=== PATIENT | female | born 1960 | race Caucasian/White ===

== ENCOUNTER 2017-05-11 18:51 | Emergency (ER) | payer OTHER ==
[2017-05-11 18:56] VITALS: BP 150/106
[2017-05-11] MEDS ORDERED: Acetaminophen 500 MG Tab PO ONE (19:03)
--- NOTE | 2017-05-11 19:25 | EDM.PDOC ---
ED HPI GENERAL MEDICAL PROBLEM - General Chief Complaint: Genitourinary Problem Stated Complaint: thinks she has a UTI Time Seen by Provider: 05/11/17 19:00 Source of Information: Reports: Patient History Limitations: Reports: No Limitations - History of Present Illness INITIAL COMMENTS - FREE TEXT/NARRATIVE: Patient indicated last evening 101 lowgrade fever and chills, no other S/S with exception of cough. She states she went to bed and got up this am and fever was 99 range. She states this am she noted urgency with urination and cloudy urine. She states cough persists. She is in for further treatment. 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 Pelvic Pain Score (Numeric/FACES): 4 - Related Data Allergies Allergy/AdvReac Type Severity Reaction Status Date / Time No Known Allergies Allergy Verified 06/01/15 11:05 Home Meds: Home Meds Ibuprofen 200 mg PO Q6H PRN 06/01/15 [History] Lisinopril 20 mg PO DAILY 06/01/15 [History] Omeprazole [Prilosec] 20 mg PO DAILY 06/01/15 [History] Simvastatin [Zocor] 40 mg PO DAILY 06/01/15 [History] Acetaminophen/HYDROcodone [[place] 325-5 MG] 1 tab PO Q6H #30 tablet 06/07/15 [Rx] glipiZIDE [Glucotrol] 10 mg PO DAILY 05/11/17 [History] Past Medical History Cardiovascular History: Reports: High Cholesterol, Hypertension Genitourinary History: Reports: UTI, Recurrent 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 () Endocrine/Metabolic History: Reports: Diabetes, Type II - Past Surgical History Other HEENT Surgeries/Procedures: wears glasses GI Surgical History: Reports: Cholecystectomy Female Surgical History: Reports: Section Social & Family History - Family History Family Medical History: Noncontributory - Tobacco Use Smoking Status *Q: Never Smoker - Caffeine Use Caffeine Use: Reports: Coffee - Recreational Drug Use Recreational Drug Use: No ED ROS GENERAL - Review of Systems Review Of Systems: See Below Constitutional: Reports: Fever, Chills, Malaise HEENT: Reports: No Symptoms Respiratory: Reports: Cough Cardiovascular: Reports: No Symptoms Endocrine: Reports: No Symptoms GI/Abdominal: Reports: No Symptoms : Reports: Dysuria, Frequency, Urgency. Denies: Flank Pain Musculoskeletal: Reports: No Symptoms Skin: Reports: No Symptoms Neurological: Reports: No Symptoms Psychiatric: Reports: No Symptoms Hematologic/Lymphatic: Reports: No Symptoms Immunologic: Reports: No Symptoms ED EXAM, RENAL/ - Physical Exam Exam: See Below Exam Limited By: No Limitations General Appearance: Alert, WD/WN, No Apparent Distress, Other (Appears well. ) Eye Exam: Bilateral Eye: Normal Fundi, Normal Inspection Ears: Normal External Exam, Normal Canal, Hearing Grossly Normal, Normal TMs Nose: Normal Inspection, Normal Mucosa, No Blood Throat/Mouth: Normal Inspection, Normal Lips, Normal Teeth, Normal Gums, Normal Oropharynx, Normal Voice, No Airway Compromise Head: Atraumatic, Normocephalic Neck: Normal Inspection, Supple, Non-Tender, Full Range of Motion Respiratory/Chest: No Respiratory Distress, Lungs Clear, Normal Breath Sounds, No Accessory Muscle Use, Chest Non-Tender. No: Crackles, Rales, Rhonchi, Wheezing Cardiovascular: Normal Peripheral Pulses, No Edema, No JVD, No Murmur, No Rub, Tachycardia GI/Abdominal: Normal Bowel Sounds, Soft, Non-Tender, No Organomegaly, No Distention. No: Rebound (Female) Exam: Deferred Rectal (Female) Exam: Deferred Back Exam: Normal Inspection, Full Range of Motion. No: CVA Tenderness (L), CVA Tenderness (R) Extremities: Normal Inspection, Normal Range of Motion, Non-Tender, No Pedal Edema, Normal Capillary Refill Neurological: Alert, Oriented, CN II-XII Intact, Normal Cognition, Normal Gait, Normal Reflexes, No Motor/Sensory Deficits Psychiatric: Normal Affect, Normal Mood Skin Exam: Warm, Dry, Intact, Normal Color, No Rash Lymphatic: No Adenopathy Course - Vital Signs Last Recorded V/S: Last Vital Signs Temp 39.3 C H 05/11/17 19:10 Pulse 155 H 05/11/17 18:52 Resp 20 05/11/17 18:52 BP 150/106 H 05/11/17 18:52 Pulse Ox 93 L 05/11/17 18:52 - Orders/Labs/Meds Orders: Active Orders 24 hr Category Date Time Status Chest 2V [CR] Stat Exams 05/11/17 19:15 Taken CULTURE BLOOD [BC] Stat Lab 05/11/17 19:15 Received CULTURE BLOOD [BC] Stat Lab 05/11/17 19:19 Received CULTURE URINE [RM] Stat Lab 05/11/17 19:10 Received Blood Culture x2 Reflex Set [OM.PC] Stat Oth 05/11/17 19:00 Ordered Labs: Laboratory Tests 05/11/17 05/11/17 05/11/17 Range/Units 19:10 19:15 19:15 WBC 5.3 (5.0-10.0) 10^3/uL RBC 4.16 (4.00-5.50) 10^6/uL Hgb 12.1 (12.0-16.0) g/dL Hct 36.1 L (37.0-47.0) % MCV 86.8 (82.0-94.0) fL MCH 29.1 (27.0-32.0) pg MCHC 33.5 (33.0-38.0) g/dL RDW Coeff of [place] 14.0 (11.0-15.0) % Plt Count 197 (150-400) 10^3/uL Neut % (Auto) 77.6 (35-85) % Lymph % (Auto) 12.9 (10-55) % [place] % (Auto) 8.3 (0-16) % Eos % (Auto) 0.8 (0-5) % Baso % (Auto) 0.4 (0-3) % Neut # (Auto) 4.10 (1.80-7.00) 10^3/uL Lymph # (Auto) 0.68 L (1.00-4.80) 10^3/uL [place] # (Auto) 0.44 (0.00-0.80) 10^3/uL Eos # (Auto) 0.04 (0.00-0.45) 10^3/uL Baso # (Auto) 0.02 10^3/uL Sodium 139 (136-145) mEq/L Potassium 5.2 H (3.5-5.0) mEq/L Chloride 101 (98-106) mEq/L Carbon Dioxide 24 (21-32) mmol/L BUN 23 H D (7-18) mg/dL Creatinine 1.5 H (0.6-1.0) mg/dL Est Cr Clr Drug Dosing 35.47 mL/min Estimated GFR (MDRD) 36 L (>=60) mL/min Glucose 119 H D (75-99) mg/dL Lactic Acid (0.4-2.0) mmol/L Calcium 10.0 (8.4-10.1) mg/dL Total Bilirubin 1.9 H (0.0-1.0) mg/dL AST 116 H (15-37) U/L ALT 128 H (12-78) U/L Alkaline Phosphatase 294 H (46-116) U/L C-Reactive Protein 20.6 H (0.2-0.8) mg/dL Total Protein 8.0 (6.4-8.2) g/dL Albumin 4.2 (3.4-5.0) g/dL Urine Color Yellow (YELLOW) Urine Appearance Cloudy (CLEAR) Urine pH 5.5 (4.5-8.0) Ur Specific [place] 1.020 (1.003-1.020) Urine Protein 100 H (NEGATIVE) mg/dL Urine Glucose (UA) Negative (NEGATIVE) mg/dL Urine Ketones 15 H (NEGATIVE) mg/dL Urine Occult Blood Moderate H (NEGATIVE) Urine Nitrite Negative (NEGATIVE) Urine Bilirubin Negative (NEGATIVE) Urine Urobilinogen 0.2 (0.2-1.0) EU/dL Ur Leukocyte Esterase Large H (NEGATIVE) Urine RBC 10-20 H (0-5) /HPF Urine WBC >100 H (0-5) /HPF Urine WBC Clumps Few H (NOT SEEN) /HPF Ur Squamous Epith Cells Few H (NOT SEEN) /HPF Urine Bacteria Few H (NOT SEEN) /HPF 05/11/17 Range/Units 19:19 WBC (5.0-10.0) 10^3/uL RBC (4.00-5.50) 10^6/uL Hgb (12.0-16.0) g/dL Hct (37.0-47.0) % MCV (82.0-94.0) fL MCH (27.0-32.0) pg MCHC (33.0-38.0) g/dL RDW Coeff of [place] (11.0-15.0) % Plt Count (150-400) 10^3/uL Neut % (Auto) (35-85) % Lymph % (Auto) (10-55) % [place] % (Auto) (0-16) % Eos % (Auto) (0-5) % Baso % (Auto) (0-3) % Neut # (Auto) (1.80-7.00) 10^3/uL Lymph # (Auto) (1.00-4.80) 10^3/uL [place] # (Auto) (0.00-0.80) 10^3/uL Eos # (Auto) (0.00-0.45) 10^3/uL Baso # (Auto) 10^3/uL Sodium (136-145) mEq/L Potassium (3.5-5.0) mEq/L Chloride (98-106) mEq/L Carbon Dioxide (21-32) mmol/L BUN (7-18) mg/dL Creatinine (0.6-1.0) mg/dL Est Cr Clr Drug Dosing mL/min Estimated GFR (MDRD) (>=60) mL/min Glucose (75-99) mg/dL Lactic Acid 1.0 (0.4-2.0) mmol/L Calcium (8.4-10.1) mg/dL Total Bilirubin (0.0-1.0) mg/dL AST (15-37) U/L ALT (12-78) U/L Alkaline Phosphatase (46-116) U/L C-Reactive Protein (0.2-0.8) mg/dL Total Protein (6.4-8.2) g/dL Albumin (3.4-5.0) g/dL Urine Color (YELLOW) Urine Appearance (CLEAR) Urine pH (4.5-8.0) Ur Specific [place] (1.003-1.020) Urine Protein (NEGATIVE) mg/dL Urine Glucose (UA) (NEGATIVE) mg/dL Urine Ketones (NEGATIVE) mg/dL Urine Occult Blood (NEGATIVE) Urine Nitrite (NEGATIVE) Urine Bilirubin (NEGATIVE) Urine Urobilinogen (0.2-1.0) EU/dL Ur Leukocyte Esterase (NEGATIVE) Urine RBC (0-5) /HPF Urine WBC (0-5) /HPF Urine WBC Clumps (NOT SEEN) /HPF Ur Squamous Epith Cells (NOT SEEN) /HPF Urine Bacteria (NOT SEEN) /HPF Meds: Medications Discontinued Medications Generic Name Dose Route Start Last Admin Trade Name Freq PRN Reason Stop Dose Admin Acetaminophen 1,000 mg 05/11/17 19:03 05/11/17 19:10 Tylenol Extra Strength PO 05/11/17 19:04 1,000 mg ONETIME ONE Administration Ceftriaxone Sodium 1 gm 05/11/17 19:41 05/11/17 19:47 Rocephin IVPUSH 05/11/17 19:42 1 gm ONETIME ONE Administration Ciprofloxacin 500 mg 05/11/17 21:09 Ciprofloxacin Hcl PO 05/11/17 21:10 NOW ONE Sodium Chloride 1,000 mls @ 999 mls/hr 05/11/17 19:41 05/11/17 19:49 Normal Saline IV 05/11/17 20:41 999 mls/hr .BOLUS ONE Administration Departure - Departure Time of Disposition: 21:18 Disposition: Home, Self-Care 01 Condition: Good Clinical Impression: UTI, Urinary tract infectious disease - Discharge Information Forms: ED Department Discharge Additional Instructions: FLuids, Hydration and antibiotics as prescribed. Antipyretics for fever and F/U in am or prn MLP Sign Off - Signature Requirements MLP Sign Off: No - Problem List & Annotations (1) UTI (urinary tract infection) SNOMED Code(s): 40562917 Code(s): N39.0 - URINARY TRACT INFECTION, SITE NOT SPECIFIED Status: Acute Current Visit: Yes Qualifiers: Indwelling urinary catheter type: unspecified Encounter type: initial encounter (2) Dehydration SNOMED Code(s): 73535581 Code(s): E86.0 - DEHYDRATION Status: Acute Current Visit: Yes - My Orders Last 24 Hours: My Active Orders 05/11/17 19:00 Blood Culture x2 Reflex Set [OM.PC] Stat 05/11/17 19:10 CULTURE URINE [RM] Stat 05/11/17 19:15 Chest 2V [CR] Stat CULTURE BLOOD [BC] Stat 05/11/17 19:19 CULTURE BLOOD [BC] Stat - Assessment/Plan Last 24 Hours: My Active Orders 05/11/17 19:00 Blood Culture x2 Reflex Set [OM.PC] Stat 05/11/17 19:10 CULTURE URINE [RM] Stat 05/11/17 19:15 Chest 2V [CR] Stat CULTURE BLOOD [BC] Stat 05/11/17 19:19 CULTURE BLOOD [BC] Stat Assessment:: Acute UTI Blood Cultures and Ua culture Pending Dehydration Plan: Patient evaluated and treatment for acute uti with IV ROcephin 1 Gram Cipro 500 mg PO Tylenol 1000 mg po IVF BOlus of 1000 cc over 3 hours Patient with good response to therapy and advised feels much better. Discussed discharge and F/U in clinic in am. Patient verbalizes understandings
[2017-05-11] MEDS ORDERED: cefTRIAXone 1 GM Vial IVPUSH ONE (19:41)
[2017-05-11] MEDS ORDERED: Sodium Chloride 0.9% 1,000 ML IV ONE (19:41)
[2017-05-11] MEDS ORDERED: Ciprofloxacin 500 MG Tab PO ONE (21:09)
== END 2017-05-11 21:33 | disposition home or self-care (01) ==
LOC: CC.ED 18:51
DX: N39.0 Urinary tract infection, site not specified (principal); E78.00 Pure hypercholesterolemia, unspecified; I10 Essential (primary) hypertension; E11.9 Type 2 diabetes mellitus without complications; Z79.84 Long term (current) use of oral hypoglycemic drugs
CPT/HCPCS: 36415; 71020; 80053; 81001; 83605; 85025; 86140; 87040; 87086; 87088; 87186; 96361; 96374; 99284; A9270; J0696; J7030

== ENCOUNTER 2019-10-24 12:21 | Emergency (ER) | payer BC ==
--- NOTE | 2019-10-24 13:03 | EDM.PDOC ---
ED HPI GENERAL MEDICAL PROBLEM - General Chief Complaint: Lower Extremity Injury/Pain Stated Complaint: LT LEG FELL IN WORK PARKING LOT Time Seen by Provider: 10/24/19 12:45 Source of Information: Reports: Patient History Limitations: Reports: No Limitations - History of Present Illness INITIAL COMMENTS - FREE TEXT/NARRATIVE: was walking in the paring lot at work and she slipped and fell on the ice. She fell onto her right hip and laterally extended left leg. She has pain to the lateral proximal leg with full weight bearing. When not standing on it. No bruising or swelling noted to the area. Does have some mild swelling to the medial aspect of the left knee- currently has no pain to that area. Onset: Today Location: Reports: Lower Extremity, Left Quality: Reports: Sharp (with weight bearing.) Worsens with: Reports: Other (weight bearing.) - Related Data Allergies Allergy/AdvReac Type Severity Reaction Status Date / Time No Known Allergies Allergy Verified 06/01/15 11:05 Home Meds: Home Meds Ibuprofen 200 mg PO Q6H PRN 06/01/15 [History] Lisinopril 20 mg PO DAILY 06/01/15 [History] Omeprazole [Prilosec] 20 mg PO DAILY 06/01/15 [History] Simvastatin [Zocor] 40 mg PO DAILY 06/01/15 [History] Acetaminophen/HYDROcodone [[place] 325-5 MG] 1 tab PO Q6H #30 tablet 06/07/15 [Rx] glipiZIDE [Glucotrol] 10 mg PO DAILY 05/11/17 [History] Past Medical History Cardiovascular History: Reports: High Cholesterol, Hypertension Genitourinary History: Reports: UTI, Recurrent 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: Endocrine/Metabolic History: Reports: Diabetes, Type II - Past Surgical History Other HEENT Surgeries/Procedures: wears glasses GI Surgical History: Reports: Cholecystectomy Female Surgical History: Reports: Section Social & Family History - Family History Family Medical History: Noncontributory - Caffeine Use Caffeine Use: Reports: Coffee Review of Systems - Review of Systems Review Of Systems: See Below Constitutional: Reports: No Symptoms Respiratory: Reports: No Symptoms Cardiovascular: Reports: No Symptoms Musculoskeletal: Reports: Leg Pain Skin: Reports: No Symptoms Neurological: Reports: No Symptoms ED EXAM, GENERAL - Physical Exam Exam: See Below Exam Limited By: No Limitations General Appearance: Alert, WD/WN, Mild Distress Head: Atraumatic, Normocephalic Neck: Normal Inspection, Supple, Non-Tender Respiratory/Chest: No Respiratory Distress, Lungs Clear, Normal Breath Sounds Cardiovascular: Regular Rate, Rhythm, No Edema Extremities: Normal Inspection, Normal Range of Motion, No Pedal Edema, Other ( Has increase in tenderness to the lateral proximal leg. If not weight bearing pain is minimal. ) Neurological: Alert, Oriented Skin Exam: Warm, Dry Course - Orders/Labs/Meds Orders: Active Orders 24 hr Category Date Time Status Knee 3V Lt [CR] Routine Exams 10/24/19 Ordered Departure - Departure Time of Disposition: 13:03 Disposition: Home, Self-Care 01 Condition: Good Clinical Impression: Contusion of hip, Sprain of knee, Pain in left leg Fall due to ice or snow Qualifiers: Encounter type: initial encounter Qualified Code(s): W00.9XXA - Unspecified fall due to ice and snow, initial encounter Clinical Impression: (Ruled Out): Pain in left tibia - Discharge Information *PRESCRIPTION DRUG MONITORING PROGRAM REVIEWED*: Not Applicable *COPY OF PRESCRIPTION DRUG MONITORING REPORT IN PATIENT FOX: Not Applicable Forms: ED Department Discharge Additional Instructions: wrap with AROLDO wrap for support or comfort. ICE on 20-30 minutes 3-4 times a day. Meloxicam 15 mg daily tylenol 500 mg 2 tabs 3 times a day weight bearing as tolerated If pain is not improved by Sunday then return to the clinic If not walking with out assistance by Sunday needs to stay off work. If not improving may need CT or MRI next week. Sepsis Event Note - Focused Exam Date Exam was Performed: 10/24/19 Time Exam was Performed: 13:14 - Problem List & Annotations (1) Fall due to ice or snow SNOMED Code(s): 957451159 Code(s): W00.9XXA - UNSPECIFIED FALL DUE TO ICE AND SNOW, INITIAL ENCOUNTER Status: Acute Priority: High Qualifiers: Encounter type: initial encounter Qualified Code(s): W00.9XXA - Unspecified fall due to ice and snow, initial encounter (2) Contusion of hip SNOMED Code(s): 41010239 Code(s): S70.00XA - CONTUSION OF UNSPECIFIED HIP, INITIAL ENCOUNTER Status : Acute Priority: Medium (3) Pain in left leg SNOMED Code(s): 019264615 Code(s): M79.605 - PAIN IN LEFT LEG Status: Acute Priority: High - Problem List Review Problem List Initiated/Reviewed/Updated: Yes - My Orders Last 24 Hours: My Active Orders 10/24/19 Knee 3V Lt [CR] Routine - Assessment/Plan Last 24 Hours: My Active Orders 10/24/19 Knee 3V Lt [CR] Routine
[2019-10-24 13:43] VITALS: BP 141/82; PULSE 87
== END 2019-10-24 13:30 | disposition home or self-care (01) ==
LOC: CC.ED 12:21
DX: S83.92XA Sprain of unspecified site of left knee, initial encounter (principal); S70.01XA Contusion of right hip, initial encounter; E78.00 Pure hypercholesterolemia, unspecified; I10 Essential (primary) hypertension; E11.9 Type 2 diabetes mellitus without complications; Z79.899 Other long term (current) drug therapy; Z79.84 Long term (current) use of oral hypoglycemic drugs; W00.0XXA Fall on same level due to ice and snow, initial encounter; Y92.481 Parking lot as the place of occurrence of the external cause
CPT/HCPCS: 73562-LT; 99283-25